=== PATIENT | female | born 1990 | race American Indian/Alaskan Native ===

== ENCOUNTER 2016-06-11 14:08 | Emergency (ER) | payer MEDICAID ==
[2016-06-11] MEDS ORDERED: LIDOCAINE VISCOUS 2% TP STA (16:54)
[2016-06-11] MEDS ORDERED: TORADOL IM ONE (16:54)
--- NOTE | 2016-06-11 16:59 | Emergency Department Report ---
ED General Adult HPI - General Chief complaint: Rectal Pain Stated complaint: CONSTIPATION Time Seen by Provider: 06/11/16 16:45 Source: patient Mode of arrival: Ambulatory Limitations: No Limitations - History of Present Illness Initial comments: PT c/o constipation since May 30. PT states she had vaginal delivery at that time and had hemorrhoids. PT states she usually has 1 BM a week. PT states she has always been like that. 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 PT states she was prescribed a powder laxative and suppositories. PT states she also had her boyfriend go to the drug store and buy her laxative. PT states she has passed watery stool but she has rectal pain and this she might have an internal hemorrhoid. MD Complaint: constipation -: Gradual, week(s) Severity scale (0 -10): 10 Quality: constant Consistency: constant Improves with: none Worsens with: eating, medication Associated Symptoms: loss of appetite (for food. pt states she is drinking fluids ). denies: chest pain, fever/chills, nausea/vomiting Treatments Prior to Arrival: NSAID, other (laxatives ) - Related Data Allergies Allergy/AdvReac Type Severity Reaction Status Date / Time No Known Allergies Allergy Unverified 06/11/16 14:48 ED Review of Systems ROS: Stated complaint: CONSTIPATION Other details as noted in HPI Comment: All other systems reviewed and negative Cardiovascular: denies: chest pain Gastrointestinal: abdominal pain, diarrhea, constipation ED Past Medical Hx - Past Medical History Hx Hypertension: No Additional medical history: ANEMIA - Surgical History Past Surgical History?: No - Family History Family history: other (mother has issues with constipation ) - Social History Smoking Status: Never Smoker Substance Use Type: None ED Physical Exam - General Limitations: No Limitations General appearance: alert, in no apparent distress - Head Head exam: Present: atraumatic, normocephalic - Eye Eye exam: Present: normal appearance. Absent: conjunctival injection - ENT ENT exam: Present: normal exam - Neck Neck exam: Present: normal inspection. Absent: tenderness, full ROM - Respiratory Respiratory exam: Present: normal lung sounds bilaterally. Absent: respiratory distress - Cardiovascular Cardiovascular Exam: Present: regular rate, normal rhythm, normal heart sounds - GI/Abdominal GI/Abdominal exam: Present: soft, hyperactive bowel sounds. Absent: tenderness , guarding, rebound - Rectal Rectal exam: Present: normal rectal tone, fecal impaction, hemorrhoids ( internal ) - Extremities Exam Extremities exam: Present: normal inspection, full ROM - Back Exam Back exam: Present: normal inspection. Absent: tenderness, CVA tenderness (R), CVA tenderness (L) - Neurological Exam Neurological exam: Present: alert, oriented X3 - Psychiatric Psychiatric exam: Present: normal affect, normal mood - Skin Skin exam: Present: warm, dry, intact ED Course Vital Signs 06/11/16 06/11/16 06/11/16 14:48 17:40 20:19 Temperature 98.3 F Pulse Rate 76 Respiratory 17 18 18 Rate Blood Pressure 108/73 O2 Sat by Pulse 97 Oximetry - Reevaluation(s) Reevaluation #1: 06/11/16 17:00 PT aware of possible impaction. PT aware ENZO will need to be preformed. Reviewed disimpaction procedure with pt. verbal consent given. Reevaluation #2: 06/11/16 18:00 soap suds enema initiated Reevaluation #3: 06/11/16 19:00 PT states she had mild relief after enema. states she passed watery stool. soap suds enema repeated Reevaluation #4: 06/11/16 19:43 PT using bathroom, will continue to monitor Reevaluation #5: 06/11/16 22:30 PT states she passed large amount of stool after last enema. PT has small amount of soft stool in rectal vault. PT aware she will need GI follow up due to possible internal hemorrhoid. PT verbalizes understanding. PT needing pain medication to manage her pain. PT states no relief at home with Motrin. PT aware all narcotics can be constipating and to use sparingly - Pulse Oximetry Interpretation Digit-Finger Initial Pulse Oximetry Readin Actions Taken: none - Rectal Disimpaction Consent Obtained: verbal consent Time Out Performed: Yes Indication: fecal impaction Procedural Sedation: No Sedation/Analgesia: other (toradol ) Technique: manual disimpaction with Result: unable to disimpact (impaction palpable but unable to remove) Complications: none Patient Tolerated Procedure: well, no complications Additional Comments: soap suds enema given ED Medical Decision Making - Differential Diagnosis constipation, fecal impaction Critical care attestation.: If time is entered above; I have spent that time in minutes in the direct care of this critically ill patient, excluding procedure time. ED Disposition Clinical Impression: Fecal impaction, Acute hemorrhoid Disposition: DISCHARGED TO HOME OR SELFCARE Is pt being admited?: No Does the pt Need Aspirin: No Condition: Stable Instructions: Hemorrhoids (ED), Fecal Impaction (ED) Referrals: PRIMARY CARE, [Primary Care Provider] - 3-5 Days [facility] [Provider Group] - 3-5 Days
[2016-06-11] MEDS ORDERED: MORPHINE IM ONE (20:05)
[2016-06-11 23:09] VITALS: BP 126/83
== END 2016-06-11 23:12 | disposition home or self-care (01) ==
LOC: ED 14:08
DX: K56.41 Fecal impaction (principal); K64.9 Unspecified hemorrhoids
CPT/HCPCS: 45915; 96372; 99284; J1885; J2270

== ENCOUNTER 2016-07-06 06:55 | Emergency (ER) | payer MEDICAID ==
[2016-07-06 07:22] VITALS: BP 127/85
[2016-07-06] MEDS ORDERED: XYLOCAINE 1% MPF 5 mL INFILTRATI ONE (07:59)
[2016-07-06] MEDS ORDERED: TORADOL IM ONE (07:59)
[2016-07-06] MEDS ORDERED: ROCEPHIN IM ONE (07:59)
--- NOTE | 2016-07-06 08:01 | Emergency Department Report ---
HPI - General Chief Complaint: Dental/Oral Time Seen by Provider: 07/06/16 07:53 - HPI HPI: Patient here reports that she has left-sided facial swelling and left upper back to the pain at 10 out of 10. She said this is going on for 2 days and she took ibuprofen. She says she does not have a dentist she is going to call her insurance company and find a dentist in the area. She denies any fever or chills. Denies any nausea vomiting. Denies any difficulty swallowing or sore throat. Denies any cough, congestion or shortness of breath. ED Past Medical Hx - Past Medical History Previous Medical History?: Yes Hx Hypertension: No Additional medical history: ANEMIA - Surgical History Past Surgical History?: No - Family History Family history: hypertension - Social History Smoking Status: Never Smoker Substance Use Type: None - Medications Home Medications: Home Medications Medication Instructions Recorded Confirmed Last Taken Type Acetaminophen/Codeine [Tylenol #3] 1 tab PO Q6H PRN #12 tab 06/11/16 Unknown Rx Docusate Sodium [Colace] 100 mg PO BID PRN #14 capsule 06/11/16 Unknown Rx Hydrocortisone Acetate [Proctocort 30 mg RC BID #14 supp.rect 06/11/16 Unknown Rx SUPPOS] Lactobacillus Acidophilus 1 mg PO DAILY #14 capsule 06/11/16 Unknown Rx [Acidophilus Probiotic] Polyethylene Glycol 3350 [Miralax 17 gm PO QDAY #14 packet 06/11/16 Unknown Rx 3350] HYDROcodone/APAP 5-325 [[place] 1 each PO Q6HR PRN #15 tablet 07/06/16 Unknown Rx 5/325] Ibuprofen [Motrin] 600 mg PO Q8H PRN #21 tablet 07/06/16 Unknown Rx Penicillin Vk [Veetids TAB] 500 mg PO Q8H #60 tablet 07/06/16 Unknown Rx ED Review of Systems ROS: Stated complaint: TOOTHACHE, ABSCESS Other details as noted in HPI Comment: All other systems reviewed and negative Constitutional: denies: chills, fever ENT: dental pain, other (facial swelling). denies: ear pain, throat pain, congestion Respiratory: no symptoms reported Cardiovascular: denies: chest pain, palpitations, edema, syncope Gastrointestinal: denies: nausea, vomiting Musculoskeletal: denies: back pain, arthralgia Skin: denies: rash Neurological: denies: headache, weakness, numbness, paresthesias, confusion, abnormal gait, vertigo Physical Exam - Physical Exam Vital Signs: Vital Signs 07/06/16 07/06/16 07:19 08:00 Temperature 98.8 F Pulse Rate 104 H 92 H Respiratory 18 Rate Blood Pressure 127/85 O2 Sat by Pulse 100 Oximetry General: This is a 26-year-old female well-nourished well-developed in no acute distress. Physical Exam: Head: [Normocephalic atraumatic Mouth: Moist, no pharyngeal exudate or erythema. Uvula is midline and oral airway is patent. No gingival enlargement . Patient with dental tenderness around tooth #15 and 16. With mild erythema. Minimal induration and no fluctuance. LT facial swelling. No induration or fluctuance. No erythema to the face. No peritonsillar abscesses. Neck: Supple, no C-spine tenderness, no tracheal deviation. Nontender to palpate. no adenopathy Ears: Bilateral TMs pearly dejesus.bilateral EAC without any redness swelling or drainage Eyes: Bilateral pupils equal and reactive to light, bilateral EOM intact. Bilateral sclera and conjunctiva without injection. Normal accommodation Nose: Mucosa moist, normal mucosa maxillary and frontal sinus non-tender to palpate. Lungs: Clear to auscultate bilaterally no rhonchi wheezes or rales. Normal work of breathing extremity; No CCE. +2 pulses. No neurovascular compromise Cardiovascular: S1-S2, tachycardic at 104 ,regular rhythm. No murmurs. Skin: clean Dry and intact no rash no lesions Psych: Normal mood and behavior ED Course Vital Signs 07/06/16 07/06/16 07:19 08:00 Temperature 98.8 F Pulse Rate 104 H 92 H Respiratory 18 Rate Blood Pressure 127/85 O2 Sat by Pulse 100 Oximetry - Reevaluation(s) Reevaluation #1: 07/06/16 08:13 Patient given Rocephin 1 g IM and Toradol 60 mg IM and emergency room without any adverse reaction. ED Medical Decision Making - Medical Decision Making ED course: Diagnosis of Patient with oral cellulitis and facial swelling with toothache and dental caries. Treatment plan and diagnosis explained to patient. States patient that I will put her on antibiotic and pain medication and she will need to call dentist schedule appointment. I also gave her referral to [facility] dental clinic to call today to schedule an appointment. discharged home with prescription for penicillin VK, Motrin and [place]. Critical care attestation.: If time is entered above; I have spent that time in minutes in the direct care of this critically ill patient, excluding procedure time. ED Disposition Clinical Impression: Tooth ache, Oral cellulitis, Dental caries, Left facial swelling Disposition: DISCHARGED TO HOME OR SELFCARE Is pt being admited?: No Does the pt Need Aspirin: No Condition: Stable Instructions: Cellulitis (ED), Toothache (ED) Additional Instructions: Take antibiotic to schedule Follow up with dentist as instructed, call today to schedule an appointment. Do not take [place] while driving or operating heavy machinery as this can cause drowsiness. Prescriptions: HYDROcodone/APAP 5-325 [[place] 5/325] 1 each PO Q6HR PRN #15 tablet PRN Reason: Pain Ibuprofen [Motrin] 600 mg PO Q8H PRN #21 tablet PRN Reason: Pain Penicillin Vk [Veetids TAB] 500 mg PO Q8H #60 tablet Referrals: [facility] [Outside] - 3-5 Days [facility] [Outside] - 3-5 Days [facility] [Outside] - 07/09/16 Forms: Work/School Release Form(ED)
== END 2016-07-06 08:43 | disposition home or self-care (01) ==
LOC: ED 06:55
DX: K12.2 Cellulitis and abscess of mouth (principal); K02.9 Dental caries, unspecified; K08.89 Other specified disorders of teeth and supporting structures; D64.9 Anemia, unspecified
CPT/HCPCS: 96372; 99282; J0696; J1885